=== PATIENT | female | born 1975 ===

== ENCOUNTER 2023-02-10 10:05 | Inpatient (IN) | payer OTHER ==
[~2023-02-10] VITALS: Ht 154.9 cm; Wt 68.0 kg
[2023-03-11] MEDS ORDERED: PRENATAL TABLE1 EAC1 PO (10:03)
== END 2023-03-13 13:46 | disposition home or self-care (01) | DRG 807 ==
LOC: OB/GYN 03-08 10:03 → LDR 03-11 08:14 → OB/GYN 03-11 15:22
PROVIDERS: ADMIT Obstetrics & Gynecology; ATTEND Obstetrics & Gynecology
PROC: 10E0XZZ Delivery of Products of Conception, External Approach (ICD-10-PCS; principal; 2023-03-11)
PROC: 0KQM0ZZ Repair Perineum Muscle, Open Approach (ICD-10-PCS; 2023-03-11)
PROC: 4A1HXCZ Monitoring of Products of Conception, Cardiac Rate, External Approach (ICD-10-PCS; 2023-03-11)
DX: O70.1 Second degree perineal laceration during delivery (principal); Z37.0 Single live birth; Z3A.40 40 weeks gestation of pregnancy; Z20.822 Contact with and (suspected) exposure to COVID-19

== ENCOUNTER 2023-03-02 09:17 | Outpatient (CLI) | payer OTHER | END 2023-03-02 11:52 | disposition home or self-care (01) | LOC: NST 09:17 | PROVIDERS: ATTEND Obstetrics & Gynecology Gynecology | DX: Z34.83 Encounter for supervision of other normal pregnancy, third trimester (principal) ==

== ENCOUNTER 2023-03-10 10:22 | Outpatient (CLI) | payer OTHER | END 2023-03-10 12:06 | disposition home or self-care (01) | LOC: NST 10:22 | PROVIDERS: ATTEND Obstetrics & Gynecology Gynecology | DX: Z34.83 Encounter for supervision of other normal pregnancy, third trimester (principal) ==